=== PATIENT | male | born 1990 | race Caucasian/White ===

== ENCOUNTER 2016-11-25 23:47 | Emergency (ER) | payer MEDICAID ==
[~2016-11-25 23:47] MED LIST: ALBUTEROL17 G1 IH; ALBUTEROL17 GM INH; AUGMENTIN PO; BACITRACIN30 GM TOP; BACTRIM DS TABL1 TA1 PO; BACTRIM DS TABL1 TAB PO; BENADRYL25 MG PO; CLARITIN D PO; COMBIVENT INH14.7 GM INH; FLEXERIL10 M1 PO; GEODAN PO; IBUPROFEN800 MG PO; MEDROL DOSEPAK4 MG PO; NO MEDICATIONS; PHENERGAN PO; PREDNISONE PO; ROBITUSSIN ALL118 ML PO; SUDAFED PO; TYLENOL #3 PO; ZITHROMAX PO
== END 2016-11-26 00:46 | disposition home or self-care (01) ==
LOC: SED 23:47
DX: H61.22 Impacted cerumen, left ear (principal); F90.9 Attention-deficit hyperactivity disorder, unspecified type; F32.9 Major depressive disorder, single episode, unspecified; Z88.8 Allergy status to other drugs, medicaments and biological substances
CPT/HCPCS: 99282

== ENCOUNTER 2017-03-12 17:08 | Emergency (ER) | payer MEDICAID ==
[~2017-03-12] VITALS: Ht 188 cm; Wt 129.3 kg
== END 2017-03-12 18:24 | disposition home or self-care (01) ==
LOC: CED 17:08 → CFTX 17:08
DX: H65.91 Unspecified nonsuppurative otitis media, right ear (principal); H60.92 Unspecified otitis externa, left ear; H61.21 Impacted cerumen, right ear; J45.909 Unspecified asthma, uncomplicated; F31.9 Bipolar disorder, unspecified; Z88.8 Allergy status to other drugs, medicaments and biological substances
CPT/HCPCS: 99282

== ENCOUNTER 2017-04-17 21:52 | Emergency (ER) | payer MEDICAID ==
[~2017-04-17] VITALS: Ht 188 cm; Wt 129.3 kg
--- NOTE | ~2017-04-17 | EKG ---
PATIENT: GA WEBER UNIT #: [id number] Ventricular Rate: 75 BPM Atrial Rate: 75 BPM P-R Interval: 108 ms QRS Duration: 82 ms Q-T Interval: 344 ms QTC Calculation(Bezet): 384 ms P [place]: 32 degrees Calculated R [place]: 60 degrees Calculated T [place]: 56 degrees Diagnosis Line: Sinus rhythm with short [place] Diagnosis Line: Otherwise normal ECG Diagnosis Line: No previous ECGs available Diagnosis Line: Confirmed by LAUREL SIMON MD ([id number]) on Diagnosis Line: 04/18/2017 11:37:53 AM INTERPRETING MD: AURORA ALEXANDER
--- NOTE | ~2017-04-17 | CR72 ---
[facility] A Service of [facility] & [facility] RADIOLOGY TEXT RESULTS PATIENT: GA WEBER LOCATION: [facility] : [birth year] UNIT #: [id number] AGE: [address]: Cristhian Harris DO SEX: M ORDER DR: [id number] [facility] [address] [place], [place] [address] [id number] E MR#: [id number] Acc #: [id number] NAME: GA WEBER : 1990 SEX: M STUDY DATE/TIME: 04/18/2017 01:13 UNIT: [facility] ROOM: STUDY DESCRIPTION: CR Chest Single View Portable Attending Physician: Cristhian Harris D.O. Ordering Physician: Cristhian Harris D.O. Primary Care Physician: No Primary Care Physician MEDICAL IMAGING REPORT This report is preliminary unless electronic signature is present EXAM Portable chest, 04/18 at 01:13. INDICATIONS Shortness of air with left side chest pain and cough for 2 days. COMPARISON 05/08/2015 FINDINGS A single AP portable view of the chest shows both lungs to be clear. The heart is normal in size. The mediastinal contour is normal. No significant bone abnormalities are seen. IMPRESSION Normal portable chest. Dictated by... Evangelista Odom Jr., M.D. THIS IS AN ELECTRONICALLY VERIFIED REPORT Evangelista Odom Jr., M.D. at 04/21/2017 7:13 AM CHRISTENK/willam TD: 04/18/2017 09:45 JOB #: [id number] MEDICAL IMAGING REPORT Page 1 of 1 COPY
--- NOTE | ~2017-04-17 | CT71 ---
[facility] A Service of [facility] RADIOLOGY TEXT RESULTS PATIENT: GA WEBER LOCATION: [facility] : [birth year] UNIT #: [id number] AGE: [address]: Cristhian Harris DO SEX: M ORDER DR: [id number] [facility] [address] [place], [place] [address] [id number] E MR#: [id number] Acc #: [id number] NAME: GA WEBER. : 1990 SEX: M STUDY DATE/TIME: 04/18/2017 03:00 UNIT: [facility] ROOM: STUDY DESCRIPTION: CT Head Wo Contrast Attending Physician: Cristhian Harris D.O. Ordering Physician: Cristhian Harris D.O. Primary Care Physician: No Primary Care Physician MEDICAL IMAGING REPORT This report is preliminary unless electronic signature is present EXAM Head CT, 04/18 and 03:00. INDICATIONS Periods of responsiveness tonight. Headache tonight with fever and possible seizure. COMPARISON None. FINDINGS Axial noncontrast images were obtained from the skull base to the vertex. This CT exam was performed with one or more of the following radiation dose reduction techniques: automatic exposure control, adjustment of mA and/or kV according to patient size, and iterative reconstruction. Ventricular size and configuration are normal. There is no evidence of acute infarct or hemorrhage. There are no extra-axial fluid collections. No mass lesion or mass effect is seen. There are no skull fractures. IMPRESSION Normal noncontrast head CT. Dictated by... Evangelista Odom Jr., M.D. THIS IS AN ELECTRONICALLY VERIFIED REPORT Evangelista Odom Jr., M.D. at 04/21/2017 7:13 AM MIGUEL/ag TD: 04/18/2017 09:57 JOB #: [id number] MEDICAL IMAGING REPORT [facility] A Service of [facility] RADIOLOGY TEXT RESULTS PATIENT: GA WEBER LOCATION: [facility] #: [id number] : [birth year] UNIT #: [id number] AGE: [address]: Cristhian Harris DO SEX: M ORDER DR: Page 1 of 1 COPY
[2017-04-17 22:34] LABS: INFLUENZA A NEG (NEG); INFLUENZA B NEG (NEG)
[2017-04-18 01:12] LABS: BASOPHIL# 0.1 X10e3 (0-0.3); BASOPHIL% 1.1 % (0-2.5); EOSINOPHIL# 0.3 X10e3 (0-0.7); EOSINOPHIL% 3.7 % (0.0-7.0); HEMATOCRIT 41.6 % (38.0-50.0); HEMOGLOBIN 13.9 gm/dL (13.0-16.0); LYMPHOCYTE# 1.7 X10e3 (1.0-3.5); MEAN CELL VOLUME 86.7 FL (83-96); MEAN CORPUSCULAR HEMOGLOBIN 29.1 PG (28-34); MEAN CORPUSCULAR HGB CONC 33.5 g/dL (30-36); MONOCYTE# 0.7 X10e3 (0-1.0); MONOCYTE% 10.1 % (3.0-12.0); NEUTROPHIL# 4.2 X10e3 (1.5-7.1); NEUTROPHIL% 61.1 % (40-75); PLATELET COUNT 233 X10e3 (140-420); RED BLOOD COUNT 4.79 X10e (3.90-5.60); RED CELL DISTRIBUTION WIDTH 13.9 % (11.0-15.5); WHITE BLOOD COUNT 6.9 X10e3 (4.0-10.5)
[2017-04-18 01:13] LABS: DIFF IND NO
[2017-04-18 01:33] LABS: POC - CKMB <1.0 ng/mL (0.0-7.9); POC - TROPONIN <0.05 ng/mL (<=0.05)
[2017-04-18 01:42] LABS: ALBUMIN SERUM 4.3 g/dL (3.5-5.0); BILIRUBIN,TOTAL 0.3 mg/dL (0.2-2.0); CALCIUM SERUM 9.4 mg/dL (8.4-10.2); GLOM FILT RATE Estimated 103.4 mL/min (>60); POTASSIUM 4.2 mmol/L (3.5-5.1); PROTEIN TOTAL SERUM 7.6 g/dL (6.0-8.3)
[2017-04-18 01:43] LABS: BILIRUBIN, DIRECT 0.1 mg/dL (0.0-0.2); BILIRUBIN,INDIRECT 0.2 mg/dL (0.0-0.9)
== END 2017-04-18 03:33 | disposition home or self-care (01) ==
LOC: CED 21:52
PROVIDERS: Emergency Medicine
DX: R05 Cough (principal); R55 Syncope and collapse; J45.909 Unspecified asthma, uncomplicated; F31.9 Bipolar disorder, unspecified; F90.9 Attention-deficit hyperactivity disorder, unspecified type; Z88.6 Allergy status to analgesic agent; Z91.018 Allergy to other foods
CPT/HCPCS: 36415; 70450; 71010; 80048; 80076; 82553; 84484; 85025; 85379; 87804; 93005; 94640; 96374; 99284; J2930